=== PATIENT | female | born 1990 | race African-American/Black ===

== ENCOUNTER 2020-09-24 11:02 | Emergency (ER) | payer OTHER ==
[~2020-09-24] VITALS: Ht 157.5 cm; Wt 54.4 kg
[2020-09-24 11:07] VITALS: BP 112/69
== END 2020-09-24 12:11 | disposition home or self-care (01) ==
LOC: ER 11:02
DX: S63.601A Unspecified sprain of right thumb, initial encounter (principal); S63.612A Unspecified sprain of right middle finger, initial encounter; W21.01XA Struck by football, initial encounter; Y93.61 Activity, american tackle football; Y92.89 Other specified places as the place of occurrence of the external cause; Y99.8 Other external cause status